=== PATIENT | male | born 1965 | race American Indian/Alaskan Native ===

== ENCOUNTER 2020-12-11 08:50 | Day surgery (SDC) | payer BC ==
[~2020-12-11 08:50] MED LIST: SODIUM CHLORIDE 0.9% 1000 ML 1,000 ML IV SCH
--- NOTE | 2020-12-11 10:03 | Anesthesia Day of Surgery ---
Anesthesia Day of Surgery - Day of Surgery Patient Examined: Yes Patient H&P Reviewed: Yes Patient is NPO: Yes
--- NOTE | 2020-12-11 10:03 | Anesthesia Consultation ---
Anesthesia Consult and Med Hx Date of service: 12/11/20 - Airway Anesthetic Teeth Evaluation: Partials (upper) ROM Head & Neck: Adequate Mental/Hyoid Distance: Adequate Mallampati Class: Class II Intubation Access Assessment: Probably Good - Pulmonary Exam CTA: Yes - Cardiac Exam Cardiac Exam: RRR - Pre-Operative Health Status ASA Pre-Surgery Classification: ASA3 Proposed Anesthetic Plan: MAC - Pulmonary Hx Smoking: No Hx Respiratory Symptoms: No Hx Sleep Apnea: Yes (noncompliant wit CPAP) - Cardiovascular System Hx Hypertension: Yes (took antihypertensive this morning) Hx Heart Attack/AMI: No Hx Percutaneous Transluminal Coronary Angioplasty (PTCA): No Hx Cardia Arrhythmia: No - Central Nervous System CVA: No - Gastrointestinal Hx Gastroesophageal Reflux Disease: No - Endocrine Hx Renal Disease: No Hx Liver Disease: No Hx Non-Insulin Dependent Diabetes: Yes (pre-DM) Hx Thyroid Disease: No
[2020-12-11] MEDS ORDERED: propofoL 200 MG/20 ML VIAL IV ONE (10:24)
--- NOTE | 2020-12-11 10:50 | Procedure Note ---
Date of procedure: 12/10/20 Pre-op diagnosis: Screening Colonoscopy/ F/H/O Cancer Post-op diagnosis: other (No Colon Polyp or Diverticular Disease noted/ Minor, Internal Hemorrhoid/ Melanosis Coli) Procedure: Colonoscopy Anesthesia: MAC Surgeon: MIRANDA SCHAFER Estimated blood loss: none Pathology: none Condition: stable Disposition: same day (Resume home medication and follow up in 1 to 2 weeks ([phone]).)
--- NOTE | 2020-12-11 11:42 | Post Anesthesia Evaluation ---
- Post Anesthesia Evaluation Patient Participated: Yes Airway Patent: Yes Stable Respiratory Function: Yes Nausea/Vomiting: No Temp > 96.8F: Yes Pain Manageable: Yes Adequeate Hydration: Yes Anesthesia Complications: No
[2020-12-11 11:51] VITALS: BP 131/81
--- NOTE | 2020-12-11 12:30 | Operative Report ---
PROCEDURE: Colonoscopy. INDICATIONS: This is a 55-year-old gentleman with a strong family history of cancer with multiple family members having cancer. Colonoscopy was done as part of colon polyp screening. DESCRIPTION OF PROCEDURE: The procedure was done after getting informed consent with MAC anesthesia. Initial rectal exam was unremarkable. Instrument was passed through the rectum onto the cecum, which was identified with ileocecal valve and appendiceal orifice. Visualization was fair to good. The terminal ileum was intubated, showed normal mucosa. The cecum was also visualized on the retroverted view. No additional pathology was noted. 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 The cecum, ascending colon, transverse colon, descending colon, and sigmoid showed evidence of melanosis coli, but no diverticular disease or colon polyps and the rectum showed minor internal hemorrhoid on the retroverted view. ASSESSMENT: Colon polyp screening, family history of cancer. No colon polyps noted, no diverticular disease noted, melanosis coli, minor internal hemorrhoid, normal ileal mucosa. PLAN: Plan is to resume home medication and have the patient follow up in the office in 1-2 weeks' time. There were no biopsies done. No complications associated with the procedure. Procedure was done in the GI lab with assistance of the GI lab team, which included LISA, Liya Prince; tech with the histology tech and with assistance of anesthesia. JOB# [id number] JOSE/MAE
== END 2020-12-11 12:10 | disposition home or self-care (01) ==
LOC: GIO 08:50
DX: Z12.11 Encounter for screening for malignant neoplasm of colon (principal); K64.8 Other hemorrhoids; I10 Essential (primary) hypertension; G47.30 Sleep apnea, unspecified; E11.9 Type 2 diabetes mellitus without complications; Z79.899 Other long term (current) drug therapy
CPT/HCPCS: 45378; 82962; J2704; J7030